=== PATIENT | female | born 1940 | race Caucasian/White ===

== ENCOUNTER 2020-04-18 06:31 | Day surgery (SDC) | payer MEDICARE ==
[2020-04-11 15:08] LABS: BASOPHILS # (AUTO) 0.1 X10'3 (0-0.2); EOSINOPHILS # (AUTO) 0.3 X10'3 (0-0.9); EOSINOPHILS % (AUTO) 4.7 % (0-6); LYMPHOCYTES # (AUTO) 1.5 X10'3 (1.1-4.8); LYMPHOCYTES % (AUTO) 27.1 % (21-51); MEAN CORPUSCULAR HEMOGLOBIN 32.5 PG (27.0-31.0); MEAN CORPUSCULAR HGB CONC 33.7 g/dL (33.0-36.5); MEAN CORPUSCULAR VOLUME 96.6 FL (78-98); MEAN PLATELET VOLUME 7.8 FL (7.4-10.4); MONOCYTES # (AUTO) 0.5 X10'3 (0-0.9); MONOCYTES % (AUTO) 9.5 % (2-12); NEUTROPHILS # (AUTO) 3.3 X10'3 (1.8-7.7); NEUTROPHILS % (AUTO) 57.7 % (42-75); PRE OP HEMATOCRIT 39.7 % (35.0-45.0); PRE OP HEMOGLOBIN 13.4 g/dL (12.0-16.0); PRE OP PLATELET COUNT 209 X10'3 (140-440); RED BLOOD COUNT 4.11 X10'6 (4.20-5.60); RED CELL DISTRIBUTION WIDTH 15.3 % (11.5-14.5)
[2020-04-11 15:30] LABS: ALBUMIN 3.4 G/DL (3.4-5.0); ALBUMIN/GLOBULIN RATIO 0.8 (1.1-1.5); ALKALINE PHOSPHATASE 59 IU/L (46-116); BLOOD UREA NITROGEN 35 MG/DL (7-18); BUN/CREATININE RATIO 19.6 (6.6-38.0); CALCIUM 9.8 MG/DL (8.5-10.1); CHLORIDE 104 MMOL/L (99-107); CREATININE 1.79 MG/DL (0.40-0.90); PRE OP ALT 55 U/L (30-65); PRE OP ANION GAP 4 (8-16); PRE OP AST 52 U/L (10-37); PRE OP BILIRUB, TOTAL 0.3 MG/DL (0.0-1.0); PRE OP GLUCOSE 117 MG/DL (70-104); PRE OP SODIUM 141 MMOL/L (135-145); TOTAL CARBON DIOXIDE 32.8 MMOL/L (24-32); TOTAL PROTEIN 7.5 G/DL (6.4-8.2); eGFR 27 ML/MIN
[2020-04-11 15:33] LABS: PRE OP POTASSIUM 4.3 MMOL/L (3.4-5.1)
[~2020-04-18] VITALS: Ht 165.1 cm; Wt 133.0 kg
[~2020-04-18 06:31] MED LIST: ALLO300T9 PO; ASPI-611 PO; BENA40TA73 PO; DOCUMENT DATE & TIME OF BETA-BLOCKER PO ONE; FURO20TA4 PO; METO-411 PO; POTA-82 PO; SIMV20TA PO; ceFAZolin inj. 3,000 MG in normal saline 100ml IV soln 100 ML IV ONE; famotidine 20mg tablet PO ONE; ringers solution, lacted 1,000 ML IV SCH
[2020-04-18] MEDS ORDERED: LIDOcaine 1% (10mg/ml) 2ml vial ONE (06:51)
[2020-04-18] MEDS ORDERED: LIDOcaine 0.5% (5mg/ml) 50ml vial ONE (07:50)
[2020-04-18 08:12] VITALS: BP 202/78
[2020-04-18 08:13] VITALS: BP 202/78
[2020-04-18] MEDS ORDERED: BUPIVAcaine/PF 2.5mg/ml (0.25%) 10ml vial ONE (09:05)
[2020-04-18] MEDS ORDERED: ringers solution, lacted 1,000 ML IV SCH (09:06)
[2020-04-18] MEDS ORDERED: morphine 4 MG/ML inj SYRINge IV PRN (09:10)
[2020-04-18] MEDS ORDERED: morphine 2 MG/ML inj. syringe IV PRN (09:10)
[2020-04-18] MEDS ORDERED: meperidine/PF 25mg/ml syringe IV PRN ×3 (09:10)
[2020-04-18] MEDS ORDERED: proCHLORperazine 10 MG/2 ml inj IV PRN (09:10)
[2020-04-18] MEDS ORDERED: ondansetron/PF 4mg/2ml inj IV PRN (09:10)
[2020-04-18] MEDS ORDERED: midazolam 2 mg/2 ml injection ONE (09:14)
[2020-04-18] MEDS ORDERED: fentaNYL/PF 50MCG/1 ML 2ML syringe ONE (09:14)
[2020-04-18] MEDS ORDERED: propofol inj 20 ML IV ONE (09:22)
[2020-04-18 09:36] VITALS: BP 201/99
--- NOTE | 2020-04-18 09:36 | NUR ---
Received from OR via , accompanied by Anesthesiologist DR HUYNH and report given by Anesthesiolgist. AWAKE AND NARDA PAIN. VITALS STABLE. SBP 201,OK WITH ANESTHESIA. SPLINT DI. NARDA PAIN.
[2020-04-18 09:46] VITALS: BP 202/71
[2020-04-18 09:56] VITALS: BP 198/77
[2020-04-18 10:06] VITALS: BP 193/75
--- NOTE | 2020-04-18 10:26 | NUR ---
AWAKE AND ORIENTED. VITALS STABLE. DRESSING DI. NARDA PAIN. HOME WITH HER SON AT THIS TIME.
== END 2020-04-18 10:26 | disposition home or self-care (01) ==
LOC: PAS 06:31
PROVIDERS: ATTEND Orthopaedic Surgery Hand Surgery
DX: G56.02 Carpal tunnel syndrome, left upper limb (principal); J44.9 Chronic obstructive pulmonary disease, unspecified; I25.2 Old myocardial infarction; I25.10 Atherosclerotic heart disease of native coronary artery without angina pectoris; I11.9 Hypertensive heart disease without heart failure; G47.33 Obstructive sleep apnea (adult) (pediatric); E66.01 Morbid (severe) obesity due to excess calories; Z68.43 Body mass index [BMI] 50.0-59.9, adult; Z20.828 Contact with and (suspected) exposure to other viral communicable diseases; Z90.49 Acquired absence of other specified parts of digestive tract; Z98.890 Other specified postprocedural states; Z87.891 Personal history of nicotine dependence; Z95.1 Presence of aortocoronary bypass graft; Z72.89 Other problems related to lifestyle
CPT/HCPCS: 36415; 64721; 80053; 82948; 85025; 87635; J0690; J2001; J2250; J2704; J3010; J3490; A4215; J7120

== ENCOUNTER 2020-05-16 05:58 | Day surgery (SDC) | payer MEDICARE ==
[2020-05-09 12:06] LABS: ALBUMIN 3.4 G/DL (3.4-5.0); ALBUMIN/GLOBULIN RATIO 0.9 (1.1-1.5); ALKALINE PHOSPHATASE 64 IU/L (46-116); BLOOD UREA NITROGEN 32 MG/DL (7-18); BUN/CREATININE RATIO 21.6 (6.6-38.0); CALCIUM 9.5 MG/DL (8.5-10.1); CHLORIDE 104 MMOL/L (99-107); CREATININE 1.48 MG/DL (0.40-0.90); PRE OP ALT 58 U/L (30-65); PRE OP ANION GAP 7 (8-16); PRE OP AST 62 U/L (10-37); PRE OP BILIRUB, TOTAL 0.3 MG/DL (0.0-1.0); PRE OP GLUCOSE 115 MG/DL (70-104); PRE OP POTASSIUM 4.5 MMOL/L (3.4-5.1); PRE OP SODIUM 139 MMOL/L (135-145); TOTAL CARBON DIOXIDE 27.7 MMOL/L (24-32); TOTAL PROTEIN 7.4 G/DL (6.4-8.2); eGFR 34 ML/MIN
[2020-05-09 12:39] LABS: BASOPHILS % (AUTO) 0.3 % (0-1); EOSINOPHILS # (AUTO) 0.3 X10'3 (0-0.9); EOSINOPHILS % (AUTO) 4.3 % (0-6); LYMPHOCYTES % (AUTO) 25.4 % (21-51); MEAN CORPUSCULAR HEMOGLOBIN 32.3 PG (27.0-31.0); MEAN CORPUSCULAR VOLUME 97.9 FL (78-98); MONOCYTES # (AUTO) 0.8 X10'3 (0-0.9); MONOCYTES % (AUTO) 10.3 % (2-12); NEUTROPHILS # (AUTO) 4.7 X10'3 (1.8-7.7); NEUTROPHILS % (AUTO) 59.7 % (42-75); PRE OP HEMOGLOBIN 13.2 g/dL (12.0-16.0); PRE OP PLATELET COUNT 222 X10'3 (140-440); RED BLOOD COUNT 4.09 X10'6 (4.20-5.60); RED CELL DISTRIBUTION WIDTH 15.8 % (11.5-14.5)
[2020-05-09 12:44] LABS: TOTAL CELLS COUNTED 100
[2020-05-09 12:45] LABS: PLATELET ESTIMATE NORMAL
[2020-05-09 12:46] LABS: LARGE PLATELETS FEW; TOXIC GRANULATION 1+; TOXIC VACUOLATION FEW
[~2020-05-16] VITALS: Ht 165.1 cm; Wt 132.9 kg
[~2020-05-16 05:58] MED LIST changes: +CALCIUM MAG ZINC; +CRAN500T2 PO; +famotidine 10mg tablet PO ONE; -famotidine 20mg tablet PO ONE
[2020-05-16 06:05] VITALS: BP 195/80
[2020-05-16] MEDS ORDERED: LIDOcaine 1% (10mg/ml) 2ml vial ONE (06:28)
[2020-05-16] MEDS ORDERED: LIDOcaine 0.5% (5mg/ml) 50ml vial ONE (07:32)
[2020-05-16] MEDS ORDERED: BUPIVAcaine/PF 2.5mg/ml (0.25%) 10ml vial ONE (07:46)
[2020-05-16] MEDS ORDERED: midazolam 2 mg/2 ml injection ONE ×2 (08:56→09:18)
[2020-05-16] MEDS ORDERED: fentaNYL/PF 50MCG/1 ML 2ML syringe ONE ×2 (08:56→09:26)
[2020-05-16] MEDS ORDERED: hydrALAZINE 20mg/ml inj. IV ONE (09:37)
[2020-05-16 09:40] VITALS: BP 177/71
--- NOTE | 2020-05-16 09:40 | NUR ---
Received from OR via BED, accompanied by Anesthesiologist DR MADRIGAL and report given by Anesthesiolgist. PATIENT A&OX4, DENIES PAIN, V/S WNL, NEUROVASCULAR CHECKS INTACT, 20G PIV LUE, SCD ON, DRESSING TO RIGHT WRIST CDI ELEVATED WITH ICEBAG APPLIED
[2020-05-16 09:50] VITALS: BP 155/64
[2020-05-16 10:00] VITALS: BP 146/69
[2020-05-16 10:10] VITALS: BP 146/65
--- NOTE | 2020-05-16 10:10 | NUR ---
PATIENT A&OX4, DENIES PAIN, V/S WNL, NEUROVASCULAR CHECKS INTACT, 20G PIV LUE D/C, SCD OFF, DRESSING TO RIGHT WRIST CDI ELEVATED WITH ICEBAG APPLIED. I HAVE REVIEWED D/C INSTRUCTIONS WITH PATIENT AND FAMILY AND THEY HAVE VERBALIZED UNDERSTANDING. PATIENT D/C HOME WITH ALL BELONGINGS AND FAMILY GAVE TRANSPORT HOME.
== END 2020-05-16 10:10 | disposition home or self-care (01) ==
LOC: PAS 05:58 → EDUNIT# 09:00 → PAS 10:10
PROVIDERS: ATTEND Orthopaedic Surgery Hand Surgery
DX: G56.01 Carpal tunnel syndrome, right upper limb (principal); J44.9 Chronic obstructive pulmonary disease, unspecified; I25.2 Old myocardial infarction; I25.10 Atherosclerotic heart disease of native coronary artery without angina pectoris; E66.9 Obesity, unspecified; Z68.43 Body mass index [BMI] 50.0-59.9, adult; I11.9 Hypertensive heart disease without heart failure; G47.33 Obstructive sleep apnea (adult) (pediatric); Z95.1 Presence of aortocoronary bypass graft; Z20.828 Contact with and (suspected) exposure to other viral communicable diseases; Z79.899 Other long term (current) drug therapy; Z79.82 Long term (current) use of aspirin; Z90.49 Acquired absence of other specified parts of digestive tract; Z98.890 Other specified postprocedural states; Z87.891 Personal history of nicotine dependence; Z72.89 Other problems related to lifestyle
CPT/HCPCS: 36415; 64721; 80053; 82948; 85025; 87635; J0360; J0690; J2001; J2250; J3010; J3490; 85007; A4215; J7120

== ENCOUNTER 2024-10-19 06:40 | Day surgery (SDC) | payer MEDICARE ==
[2024-10-19] VITALS (9 sets, daily range): BP systolic 124–159; BP diastolic 46–67; PULSE 69–78; RESP 13–15; TEMP 97.9; O2SAT 91–96
[~2024-10-19] VITALS: Ht 162.6 cm; Wt 125.6 kg
[~2024-10-19 06:40] MED LIST changes: -CRAN500T2 PO; +CRAN500T4 PO; -DOCUMENT DATE & TIME OF BETA-BLOCKER PO ONE; +POTA-366 PO; -POTA-82 PO; +SIMV-342 PO; -SIMV20TA PO; -ceFAZolin inj. 3,000 MG in normal saline 100ml IV soln 100 ML IV ONE; -famotidine 10mg tablet PO ONE; -ringers solution, lacted 1,000 ML IV SCH
[2024-10-19] MEDS ORDERED: AMLO5TAB16 PO (07:17)
[2024-10-19] MEDS ORDERED: BISO-1 PO (07:17)
[2024-10-19 07:56] LABS: BASOPHILS % (AUTO) 0.7 % (0-1); EOSINOPHILS # (AUTO) 0.3 X10'3 (0-0.9); EOSINOPHILS % (AUTO) 4.6 % (0-6); HEMATOCRIT 38.4 % (35.0-45.0); HEMOGLOBIN 12.6 g/dl (12.0-16.0); LYMPHOCYTES # (AUTO) 1.1 X10'3 (1.1-4.8); MEAN CORPUSCULAR HEMOGLOBIN 31.6 PG (27.0-31.0); MEAN CORPUSCULAR HGB CONC 32.8 g/dL (33.0-36.5); MEAN CORPUSCULAR VOLUME 96.4 FL (78-98); MEAN PLATELET VOLUME 7.9 FL (7.4-10.4); MONOCYTES # (AUTO) 0.5 X10'3 (0-0.9); MONOCYTES % (AUTO) 8.2 % (2-12); NEUTROPHILS # (AUTO) 4.1 X10'3 (1.8-7.7); NEUTROPHILS % (AUTO) 68.5 % (42-75); PLATELET COUNT 203 X10'3 (140-440); RED BLOOD COUNT 3.98 X10'6 (4.20-5.60); RED CELL DISTRIBUTION WIDTH 15.8 % (11.5-14.5)
[2024-10-19 08:03] LABS: ALBUMIN 3.1 G/DL (3.4-5.0); ANION GAP 8 (8-16); BLOOD UREA NITROGEN 41 MG/DL (7-18); BUN/CREATININE RATIO 28.7 (10.0-20.0); CALCIUM 9.3 MG/DL (8.5-10.1); CHLORIDE 107 MMOL/L (99-107); CREATININE 1.43 MG/DL (0.40-0.90); GLUCOSE 108 MG/DL (70-104); MAGNESIUM 1.6 MG/DL (1.5-2.4); POTASSIUM 5.1 MMOL/L (3.5-5.1); SODIUM 142 MMOL/L (135-145); TOTAL CARBON DIOXIDE 26.6 MMOL/L (24-32); eCRCL 26 ML/MIN; eGFR 35 ML/MIN
[2024-10-19 08:04] LABS: PROTHROMBIN TIME 10.4 SECONDS (9.0-12.0)
[2024-10-19] MEDS: sodium bicarbonate 1meq/ml syr 150 ML in dextrose 5%-water 1,000 ML IV ONE (08:30)
[2024-10-19] MEDS ORDERED: fentaNYL/PF 50MCG/1 ML 2ML syringe ONE ×2 (08:58→09:42)
[2024-10-19] MEDS ORDERED: LIDOcaine 1% 30ml preserv. free vial ONE (08:58)
[2024-10-19] MEDS ORDERED: iohexol 350 MG/ML 50ML vial IV ONE (08:58)
[2024-10-19] MEDS ORDERED: midazolam 1 mg/ML 2ml injection ONE ×3 (08:58→09:42)
[2024-10-19] MEDS ORDERED: iohexol 350MG/ML 100ml bottle IV ONE ×2 (08:58→10:16)
[2024-10-19] MEDS ORDERED: heparin 1,000unit/ml 10ml vial 10 ML ONE (08:59)
[2024-10-19] MEDS: diphenhydrAMINE 25mg capsule PO PRN (09:03)
[2024-10-19] MEDS: normal saline 1,000 ML IV SCH (09:04)
[2024-10-19] MEDS ORDERED: HYDROmorphone 1 mg/ml syringe ONE (09:43)
[2024-10-19] MEDS ORDERED: protamine sulfate 10mg/ml inj. ONE (10:33)
[2024-10-19] MEDS ORDERED: HYDROcodone/acetaminophen 10/325mg tab PO PRN (11:35)
[2024-10-19] MEDS ORDERED: proCHLORperazine 10 MG/2 ml inj IV PRN (11:35)
[2024-10-19] MEDS ORDERED: HYDROcodone/acetaminophen 5mg/325mg tablet PO PRN (11:35)
[2024-10-19] MEDS ORDERED: ondansetron/PF 4mg/2ml inj IV PRN (11:35)
== END 2024-10-19 14:15 | disposition home or self-care (01) ==
LOC: SSTAY O 06:40
PROVIDERS: ATTEND Internal Medicine Cardiovascular Disease
DX: I35.0 Nonrheumatic aortic (valve) stenosis (principal); I25.10 Atherosclerotic heart disease of native coronary artery without angina pectoris; I12.9 Hypertensive chronic kidney disease with stage 1 through stage 4 chronic kidney disease, or unspecified chronic kidney disease; N18.30 Chronic kidney disease, stage 3 unspecified; Z90.49 Acquired absence of other specified parts of digestive tract; Z98.890 Other specified postprocedural states; Z82.49 Family history of ischemic heart disease and other diseases of the circulatory system; Z87.891 Personal history of nicotine dependence; Z95.1 Presence of aortocoronary bypass graft; Z79.899 Other long term (current) drug therapy
CPT/HCPCS: 36415; 80048; 83735; 85025; 85610; 93005; 93461; 99152; 99153; A4615; A6258; C1725; C1751; C1760; C1769; C1887; C1894; J1171; J1644; J2003; J2250; J2720; J3010; J3490; J7030; J7070; Q0163; Q9967; Z7610